=== PATIENT | female | born 1950 | race Caucasian/White ===

== ENCOUNTER 2016-11-13 12:15 | Emergency (ER) | payer BC ==
[~2016-11-13] VITALS: Ht 160 cm; Wt 78.3 kg
[~2016-11-13 12:15] MED LIST: ALBUAER19 INH; ATR25 PO; IBUP-103 PO; SALI1SPR3 NAE; ZLF50 PO
[2016-11-13 12:25] VITALS: Ht 160 cm; Wt 78.3 kg
[2016-11-13] MEDS ORDERED: ZLF/50 PO (13:23)
[2016-11-13] MEDS ORDERED: ASPIRIN 81 MG CHEW PO STA (13:27)
[2016-11-13] MEDS ORDERED: PANTOprazole INJ 40 MG in SYRINGE 0 ML IV ONE (13:30)
--- NOTE | 2016-11-13 13:46 | EMERGENCY ROOM VISIT NOTE ---
History Report prepared by Tracey: Ashlyn Deleon Under the Supervision of: Dr. Satish Bell D.O. First contact with patient: 13:09 Chief Complaint: CARDIAC ASSESSMENT Stated Complaint: LEFT ARM PAIN, INDIGESTION History of Present Illness The patient is a 66 year old female who presents to the Emergency Room with complaints of persistent left arm pain that began prior to arrival. She currently rates her discomfort as a 6/10 in severity, describing her pain as an ache. The patient states that her pain has persisted throughout the day and has noticed the pain radiate from her left arm to her left shoulder, back and ribs. She states that for the past two weeks she has been experiencing heart burn that has been worsened with eating. The patient denies any tobacco or alcohol use. She denies any active medical problems. The patient notes a history of a previous hysterectomy after a benign tumor was found. She denies any history of blood clots. The patient states that she got of flu shot and pneumonia shot this year. She states that she has had a previous stress test. The patient denies any shortness of breath or cough today. Source of History: patient Onset: prior to arrival Position: arm (left) Symptom Intensity: 6/10 Quality: ache Timing: other (persistent) Associated Symptoms: No SOB, No cough Review of Systems See HPI for pertinent positives & negatives. A total of 10 systems reviewed and were otherwise negative. 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 (3) Rhabdomyolysis Surgical Problems: (1) S/P ELIAS-BSO Family History Diabetes mellitus FHx: gallbladder disease Hypertension Social History Smoking Status: Never Smoker Alcohol Use: none Marital Status: single Housing Status: lives alone Occupation Status: retired Current/Historical Medications Scheduled Sertraline HCl (Sertraline HCl), 25 MG PO PM Scheduled PRN Albuterol Inhaler (Ventolin Inhaler), 2 PUFFS INH QID PRN for ASTHMA Ibuprofen Tab (Advil), 200-600 MG PO Q4H PRN for BODY ACHE Miscellaneous Medications Saline (Saline Nasal Crum) Allergies Coded Allergies: Codeine (Unverified Allergy, Mild, 11/13/16) Penicillins (Unverified Allergy, Mild, 11/13/16) Physical Exam Vital Signs Date Time Temp Pulse Resp B/P Pulse Ox O2 Delivery O2 Flow Rate FiO2 2/14/17 16:37 37.2 94 19 145/92 95 11/13/16 16:00 94 19 95 11/13/16 15:58 145/92 11/13/16 15:51 170/92 11/13/16 15:49 103 20 157/110 96 Room Air 11/13/16 15:48 157/110 11/13/16 15:39 172/96 11/13/16 15:30 100 18 11/13/16 15:29 172/96 11/13/16 15:00 99 23 11/13/16 13:30 110 11/13/16 12:25 37.2 130 20 166/103 97 Room Air Physical Exam GENERAL: Patient is awake, alert, and in no acute distress. Patient is resting comfortably and showing no signs of anxiety EYES: The conjunctivae are clear. The pupils are round and reactive. EARS, NOSE, MOUTH AND THROAT: The nose is without any evidence of any deformity. Mucous membranes are moist tongue is midline NECK: The neck is nontender and supple. RESPIRATORY: Normal respiratory effort is noted there is no evidence of wheezing rhonchi or rales CARDIOVASCULAR: Regular rate and rhythm noted there no murmurs rubs or gallops normal S1 normal S2 GASTROINTESTINAL: The abdomen is soft. Bowel sounds are present in all quadrants. Abdomen is nontender MUSCULOSKELETAL/EXTREMITIES: There is no evidence of gross deformity full range of motion is noted in the hips and shoulders SKIN: There is no obvious evidence of any rash. There are no petechiae, pallor or cyanosis noted. NEUROLOGIC: Patient is awake alert and oriented x3. Medical Decision & Procedures ER Provider Diagnostic Interpretation: X-ray results as stated below per interpretation by me and the radiologist. KUB CLINICAL HISTORY: ABDOMINAL PAIN/GI COMPARISON STUDY: No previous studies for comparison. FINDINGS: The soft tissues, psoas shadows, renal outlines and intestinal gas pattern appear normal. There is no evidence for bowel obstruction. No abnormal abdominal calcifications are seen. IMPRESSION: Normal study. Electronically signed by: Carmelo Rodriguez M.D. 11/13/2016 2:30 PM Dictated Date/Time: 11/13/2016 2:29 PM SINGLE VIEW CHEST CLINICAL HISTORY: Generalized abdominal pain. FINDINGS: An AP, portable, upright chest radiograph is compared to chest x-ray and chest CT dated 02/04/2014. The cardiomediastinal silhouette is unremarkable. A calcified granuloma is again noted the right apex. The lungs and pleural spaces are otherwise clear. No pneumothorax is seen. The skeletal structures are osteopenic. The bony thorax is grossly intact. IMPRESSION: No active disease in the chest. Electronically signed by: Jayden Kennedy M.D. 11/13/2016 2:31 PM Dictated Date/Time: 11/13/2016 2:30 PM Laboratory Results 11/13/16 14:01 Red Blood Count 5.16, Mean Corpuscular Volume 85.7, Mean Corpuscular Hemoglobin 29.8, Mean Corpuscular Hemoglobin Concent 34.8, Mean Platelet Volume 8.7, Neutrophils (%) (Auto) 71.2, Lymphocytes (%) (Auto) 19.9, Monocytes (%) (Auto) 7.7, Eosinophils (%) (Auto) 0.7, Basophils (%) (Auto) 0.4, Neutrophils # (Auto) 5.91, Lymphocytes # (Auto) 1.65, Monocytes # (Auto) 0.64, Eosinophils # (Auto) 0.06, Basophils # (Auto) 0.03 11/13/16 14:01 Test 11/13/16 14:01 11/13/16 14:14 White Blood Count 8.30 K/uL (4.8-10.8) Red Blood Count 5.16 M/uL (4.2-5.4) Hemoglobin 15.4 g/dL (12.0-16.0) Hematocrit 44.2 % (37-47) Mean Corpuscular Volume 85.7 fL (80-100) Mean Corpuscular Hemoglobin 29.8 pg (25-34) Mean Corpuscular Hemoglobin Concent 34.8 g/dl (32-36) Platelet Count 260 K/uL (130-400) Mean Platelet Volume 8.7 fL (7.4-10.4) Neutrophils (%) (Auto) 71.2 % Lymphocytes (%) (Auto) 19.9 % Monocytes (%) (Auto) 7.7 % Eosinophils (%) (Auto) 0.7 % Basophils (%) (Auto) 0.4 % Neutrophils # (Auto) 5.91 K/uL (1.4-6.5) Lymphocytes # (Auto) 1.65 K/uL (1.2-3.4) Monocytes # (Auto) 0.64 K/uL (0.11-0.59) Eosinophils # (Auto) 0.06 K/uL (0-0.5) Basophils # (Auto) 0.03 K/uL (0-0.2) RDW Standard Deviation 41.8 fL (36.4-46.3) RDW Coefficient of Variation 13.4 % (11.5-14.5) Immature Granulocyte % (Auto) 0.1 % Immature Granulocyte # (Auto) 0.01 K/uL (0.00-0.02) Prothrombin Time 10.6 SECONDS (9.0-12.0) Prothromb Time International Ratio 1.0 (0.9-1.1) Activated Partial Thromboplast Time 27.2 SECONDS (21.0-31.0) Partial Thromboplastin Ratio 1.0 Anion Gap 11.0 mmol/L (3-11) Est Creatinine Clear Calc Drug Dose 57.3 ml/min Estimated GFR () 71.0 Estimated GFR (Non- 61.3 BUN/Creatinine Ratio 14.3 (10-20) Calcium Level 9.1 mg/dl (8.5-10.1) Total Bilirubin 0.6 mg/dl (0.2-1) Direct Bilirubin 0.2 mg/dl (0-0.2) Aspartate Amino Transf (AST/SGOT) 33 U/L (15-37) Alanine Aminotransferase (ALT/SGPT) 58 U/L (12-78) Alkaline Phosphatase 145 U/L (45-117) Total Creatine Kinase 513 U/L (26-192) Creatine Kinase MB 7.8 ng/ml (0.5-3.6) Creatine Kinase MB Ratio 1.5 (0-3.0) Troponin I < 0.015 ng/ml (0-0.045) Total Protein 7.7 gm/dl (6.4-8.2) Albumin 4.0 gm/dl (3.4-5.0) Lipase 248 U/L (73-393) Urine Color YELLOW Urine Appearance CLEAR (CLEAR) Urine pH 6.0 (4.5-7.5) Urine Specific [place] 1.013 (1.000-1.030) Urine Protein NEG (NEG) Urine Glucose (UA) NEG (NEG) Urine Ketones NEG (NEG) Urine Occult Blood NEG (NEG) Urine Nitrite NEG (NEG) Urine Bilirubin NEG (NEG) Urine Urobilinogen NEG (NEG) Urine Leukocyte Esterase NEG (NEG) Laboratory results per my review. Medications Administered Medications (Trade) Dose Ordered Sig/Julián Route Start Time Stop Time Status Last Admin Dose Admin Pantoprazole Sodium/Syringe (Protonix Inj/ Syringe) 10 ml @ 5 mls/min NOW ONCE IV 11/13/16 13:30 11/13/16 13:31 DC 11/13/16 14:06 5 MLS/MIN Aspirin (Aspirin Chew) 324 mg NOW STAT PO 11/13/16 13:27 11/13/16 13:28 DC 11/13/16 14:06 324 MG ECG Indication: chest pain Rate (beats per minute): 126 Rhythm: sinus tachycardia Findings: ST depression (Lateral), no ectopy Comparison ECG Date: 02/04/14 Change: no significant change ED Course 1323: The patient was evaluated in room B10. A complete history and physical examination were performed. 1327: Ordered Aspirin 324 mg PO. 1330: Ordered Pantoprazole Sodium 40 mg/Syringe 10 ml @ 5 mls/min IV. 1519: I reevaluated the patient and she is resting comfortably. I discussed the exam findings and I discussed the treatment plan. She verbalized complete understanding and agreement. She is ready to go home Medical Decision Differential diagnosis: Etiologies such as cardiac ischemia, aortic dissection, pulmonary embolism, pneumonia, pneumothorax, musculoskeletal, infections, pericarditis, myocarditis , esophageal rupture, gastrointestinal, as well as others were entertained. Nursing notes reviewed. The patient is a 66-year-old female who presented to emergency department for an evaluation of chest pain. The patient called her primary care physician to try to get an appointment but was unable to get an appointment at this time. The patient did not have any acute ST segment abnormalities. Her EKG appeared similar to previous. The patient was treated with aspirin and Protonix in the emergency department. She was reevaluated multiple times. I discussed the patient's laboratory and radiographic studies with her. I also discussed the limitations of the emergency department workup for chest pain with her. She was encouraged to rest and avoid any strenuous activity. She was also encouraged to call her family doctor to schedule follow-up appointment. Otherwise she was encouraged to return to the emergency apartment immediately if symptoms change worsen or the need arises. Impression Primary Impression: Left sided chest pain Scribe Attestation The scribe's documentation has been prepared under my direction and personally reviewed by me in its entirety. I confirm that the note above accurately reflects all work, treatment, procedures, and medical decision making performed by me. Departure Information Dispostion Home / Self-Care Referrals Carlos Siddiqi M.D. (PCP) Forms IMPORTANT VISIT INFORMATION, Work Instructions Patient Instructions ED Chest Pain Atypical Unkn Cause, My [facility] Additional Instructions Call your family to schedule a follow-up appointment for this week. Rest and avoid any strenuous activity. Return to the emergency department immediately if symptoms change worsen or if the need arises.
[2016-11-13 14:12] LABS: BASO % 0.4 %; BASO ABS # 0.03 K/uL (0-0.2); COMPLETE YES; EOS % 0.7 %; HEMATOCRIT 44.2 % (37-47); IG% 0.1 %; LYMPH % 19.9 %; LYMPH ABS # 1.65 K/uL (1.2-3.4); MEAN CELL VOLUME 85.7 fL (80-100); MEAN CORPUSCULAR HEMOGLOBIN 29.8 pg (25-34); MEAN CORPUSCULAR HGB CONC 34.8 g/dl (32-36); MEAN PLATELET VOLUME 8.7 fL (7.4-10.4); MONO % 7.7 %; NEUT % 71.2 %; PLATELET COUNT 260 K/uL (130-400); RED BLOOD COUNT 5.16 M/uL (4.2-5.4)
[2016-11-13 14:23] LABS: PROTHROMBIN TIME (PATIENT) 10.6 SECONDS (9.0-12.0)
--- NOTE | 2016-11-13 14:31 | DIAGNOSTIC IMAGING REPORT ---
KUB CLINICAL HISTORY: ABDOMINAL PAIN/GI COMPARISON STUDY: No previous studies for comparison. FINDINGS: The soft tissues, psoas shadows, renal outlines and intestinal gas pattern appear normal. There is no evidence for bowel obstruction. No abnormal abdominal calcifications are seen. IMPRESSION: Normal study. Electronically signed by: Carmelo Rodriguez M.D. 11/13/2016 2:30 PM Dictated Date/Time: 11/13/2016 2:29 PM
[2016-11-13 14:32] LABS: ALT/SGPT 58 U/L (12-78); AST/SGOT 33 U/L (15-37); BLOOD UREA NITROGEN 14 mg/dl (7-18); BUN/CREATININE RATIO 14.3 (10-20); CALCIUM 9.1 mg/dl (8.5-10.1); CARBON DIOXIDE 26 mmol/L (21-32); CHLORIDE 105 mmol/L (98-107); CREATININE 0.97 mg/dl (0.60-1.20); GLUCOSE 102 mg/dl (70-99); POTASSIUM 3.8 mmol/L (3.5-5.1); SODIUM 142 mmol/L (136-145)
--- NOTE | 2016-11-13 14:33 | DIAGNOSTIC IMAGING REPORT ---
SINGLE VIEW CHEST CLINICAL HISTORY: Generalized abdominal pain. FINDINGS: An AP, portable, upright chest radiograph is compared to chest x-ray and chest CT dated 02/04/2014. The cardiomediastinal silhouette is unremarkable. A calcified granuloma is again noted the right apex. The lungs and pleural spaces are otherwise clear. No pneumothorax is seen. The skeletal structures are osteopenic. The bony thorax is grossly intact. IMPRESSION: No active disease in the chest. Electronically signed by: Jayden Kennedy M.D. 11/13/2016 2:31 PM Dictated Date/Time: 11/13/2016 2:30 PM
[2016-11-13 14:34] LABS: URINE APPEARANCE CLEAR (CLEAR); URINE BILIRUBIN NEG (NEG); URINE COLOR YELLOW; URINE NITRITE NEG (NEG); URINE SPECIFIC GRAVITY 1.013 (1.000-1.030); UROBILINOGEN NEG (NEG)
[2016-11-13 14:37] LABS: MANUAL MICROSCOPIC REQUIRED? NO; REVIEW REQ? NO
[2016-11-13 14:38] LABS: ALKALINE PHOSPHATASE 145 U/L (45-117); CKMB/CK RATIO 1.5 (0-3.0)
[2016-11-13 16:37] VITALS: BP 145/92; PULSE 94; TEMP 37.2; O2SAT 95
== END 2016-11-13 16:38 | disposition home or self-care (01) ==
LOC: C.EDB 12:17
DX: R07.89 Other chest pain (principal); J45.909 Unspecified asthma, uncomplicated; Z90.710 Acquired absence of both cervix and uterus; Z90.722 Acquired absence of ovaries, bilateral; Z90.79 Acquired absence of other genital organ(s); Z83.3 Family history of diabetes mellitus; Z82.49 Family history of ischemic heart disease and other diseases of the circulatory system

== ENCOUNTER → 2016-11-14 | Outpatient (CLI) | payer BC ==
[~2016-11-14] MED LIST changes: +ACET-1256 PO; +OMEP20CA9 PO; +PTDOPS OPB; +VNTHFA/IN INH; +ZLF/50 PO
--- NOTE | 2016-11-14 16:53 | MAMMOGRAPHY REPORT ---
BILATERAL DIGITAL SCREENING MAMMOGRAM WITH CAD: 11/14/2016 TECHNIQUE: Current study was also evaluated with a Computer Aided Detection (CAD) system. Bilatera l CC and MLO views were obtained. COMPARISON: Comparison is made to exams dated: 06/15/2015 mammogram - [facility], 04/29/2014 mammogram, 04/16/2013 mammogram - [facility], 07/18/2012 mammogram - [facility], 01/10/2012 mammogram, and 10/30/2010 mammogram. BREAST COMPOSITION: There are scattered areas of fibroglandular density in both breasts. FINDINGS: No suspicious masses, calcifications, or areas of architectural distortion are noted in e ither breast. There has been no significant interval change compared to prior exams. Scattered bila teral benign-appearing calcifications are not significantly changed. A biopsy marker clip is again noted in the left medial breast. Oval benign-appearing mass in the left upper outer quadrant is sta ble dating back to at least the 2011 exam. IMPRESSION: ACR BI-RADS CATEGORY 2: BENIGN There is no mammographic evidence of malignancy. A 1 year screening mammogram is recommended. The p atient will receive written notification of the results. Approximately 10% of breast cancers are not detected with mammography. A negative mammographic repor t should not delay biopsy if a clinically suggestive mass is present. Kelsey Ruelas M.D. ah/:11/14/2016 15:28:08 Knockdown Worker: Solange GARCES)(Frank), [facility] letter sent: Normal 1/2 BI-RADS Code: ACR BI-RADS Category 2: Benign
== END | disposition home or self-care (01) ==
LOC: C.MAMM 14:03
PROVIDERS: ATTEND Internal Medicine Pulmonary Disease
DX: Z12.31 Encounter for screening mammogram for malignant neoplasm of breast (principal)

== ENCOUNTER → 2016-11-22 | Outpatient (CLI) | payer BC ==
[~2016-11-22] MED LIST changes: -ATR25 PO; -ZLF50 PO
--- NOTE | 2016-11-22 11:11 | DIAGNOSTIC IMAGING REPORT ---
LEFT SHOULDER MIN 2 VIEWS CLINICAL HISTORY: LEFT SHOULDER NECK PAIN COMPARISON: None. DISCUSSION: The bones and joint spaces appear intact. There is no evidence of fracture, dislocation or bony disease. There is no evidence for soft tissue swelling. IMPRESSION: Negative study. Electronically signed by: Carmelo Rodriguez M.D. 11/22/2016 11:10 AM Dictated Date/Time: 11/22/2016 11:09 AM
--- NOTE | 2016-11-22 12:45 | DIAGNOSTIC IMAGING REPORT ---
CERVICAL SPINE 5 VIEWS HISTORY: LEFT SHOULDER NECK PAIN COMPARISON: None. FINDINGS: The cervical spine is visualized from C1 through the superior endplate of C7. There is no fracture. No subluxation. Mild disc space narrowing at C5-C6. Mild bilateral neural foraminal narrowing at C5-C6. The odontoid is partially obscured by the patient's skull base. Prevertebral soft tissues and the atlantodens interval are intact. IMPRESSION: 1. No fracture or subluxation within the cervical spinal. 2. Mild degenerative disc disease and mild bilateral neural foraminal narrowing at C5-C6. Electronically signed by: Dain Vivas M.D. 11/22/2016 12:43 PM Dictated Date/Time: 11/22/2016 12:40 PM
== END | disposition home or self-care (01) ==
LOC: C.RDSM 09:50
PROVIDERS: ATTEND Family Medicine
DX: M25.512 Pain in left shoulder (principal)

== ENCOUNTER → 2016-11-29 | Outpatient (CLI) | payer BC ==
--- NOTE | 2016-11-29 13:09 | DIAGNOSTIC IMAGING REPORT ---
LEFT KNEE 4 OR MORE CLINICAL HISTORY: LEFT KNEE PAIN pain COMPARISON: None. DISCUSSION: Mild degenerative change medial joint compartment as well as patellofemoral joint compartment. Lateral projection suggests a potential osteochondral defect overlying the femoral condyle but this is not well seen in AP projection. There is no significant joint effusion. There is no evidence for soft tissue swelling. IMPRESSION: 1. Potential osteochondral defect seen only on the lateral projection but presumably involving the region of the femoral condyles. 2. Mild degenerative change medial joint compartment and patellofemoral joint. 3. MRI of the left knee is suggested Electronically signed by: Carmelo Rodriguez M.D. 11/29/2016 1:07 PM Dictated Date/Time: 11/29/2016 1:06 PM
== END | disposition home or self-care (01) ==
LOC: C.RDSM 12:55
PROVIDERS: ATTEND Physical Medicine & Rehabilitation Sports Medicine
DX: M25.562 Pain in left knee (principal); R93.7 Abnormal findings on diagnostic imaging of other parts of musculoskeletal system

== ENCOUNTER 2017-01-28 17:38 | Emergency (ER) | payer BC ==
[~2017-01-28] VITALS: Ht 160 cm; Wt 80.0 kg
[~2017-01-28 17:38] MED LIST changes: -ACET-1256 PO; -OMEP20CA9 PO; -PTDOPS OPB; -VNTHFA/IN INH
[2017-01-28 17:44] VITALS: TEMP 36.8; Ht 160 cm; Wt 80.0 kg
--- NOTE | 2017-01-28 18:19 | EMERGENCY ROOM VISIT NOTE ---
History Report prepared by Tracey: Darron Olivera Under the Supervision of: Dr. Jayden Uriostegui M.D. First contact with patient: 18:02 Chief Complaint: SWELLING TO EXTREMITY Stated Complaint: RIGHT FOOT SWOLLEN LOOKS LIKE BITE History of Present Illness The patient is a 66 year old female who presents to the Emergency Room with complaints of constant right foot swelling beginning two days prior to arrival. She currently rates her discomfort as a 6/10 in severity. The patient associates right foot pain and right foot itchiness with today's symptoms. She notes her pain worsens with walking. The patient states she was doing work outside, but she does not remember getting a bite from an insect. She denies recent trauma, falls, recent long travel, and recent long periods of immobility. The patient denies a history of blood clots in her legs or lungs. She notes she came to the ED, because she could not get an appointment with her regular doctor. 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 A total of 6 systems reviewed and were otherwise negative. 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 (3) Rhabdomyolysis Surgical Problems: (1) S/P ELIAS-BSO Family History Diabetes mellitus FHx: gallbladder disease Hypertension Social History Smoking Status: Never Smoker Alcohol Use: none Marital Status: single Housing Status: lives alone Occupation Status: retired Current/Historical Medications Scheduled Omeprazole (Prilosec), 20 MG PO DAILY Sertraline HCl (Sertraline HCl), 25 MG PO PM Scheduled PRN Acetaminophen (Tylenol), 1,000 MG PO DAILY PRN for Pain Albuterol Hfa (Ventolin Hfa), 2 PUFFS INH Q6H PRN for SOB/Wheezing Olopatadine Hydrochloride (Pataday), 1 DROP OPB DAILY PRN for ITCHY EYES Saline (Saline Nasal [place]), 2 SPRY DENISE DAILY PRN for TO CLEAR NOSE Allergies Coded Allergies: Codeine (Unverified Allergy, Mild, 11/13/16) Penicillins (Unverified Allergy, Mild, 11/13/16) Physical Exam Vital Signs Date Time Temp Pulse Resp B/P Pulse Ox O2 Delivery O2 Flow Rate FiO2 01/28/17 19:44 92 18 145/89 93 01/28/17 17:44 36.8 120 18 174/97 95 Room Air Physical Exam GENERAL: Patient is sitting on stretcher. No distress. NEURO: Moving all extremities. Awake and alert. Oriented X 3. EXTREMITIES: Swelling to the dorsum of the right foot. No evidence for cellulitis. No swelling to the leg itself. Good blood flow in the distal toes. Small 2 mm raised, reddened lesion consistent with a possible sting or bite to the dorsal distal lateral foot near the fourth metatarsal. Medical Decision & Procedures ER Provider Diagnostic Interpretation: X-ray results as stated below per interpretation by me and the radiologist: RIGHT FOOT 3 VIEWS CLINICAL HISTORY: Right foot pain. FINDINGS: 3 views of the right foot are obtained. No prior studies are available for comparison at the time of dictation. The skeletal structures are osteopenic. There is no radiographic evidence of fracture. Mild arthritic change is noted at the first metatarsophalangeal joint. There is a large plantar calcaneal enthesophyte. A high arch is incidentally noted. The overlying soft tissues are within normal limits. IMPRESSION: Osteopenia and mild degenerative change as above. No acute bony abnormality is identified. Electronically signed by: Jayden Kennedy M.D. 01/28/2017 7:13 PM ED Course 1803: The patient was evaluated in room C6. A complete history and physical exam was performed. 1927: Reevaluated the patient. Discussed results and discharge instructions: She verbalized understanding and agreement. The patient is ready for discharge. Medical Decision The differential diagnoses include but are not limited to: cellulitis, DVT, fracture, bite or sting, arthritis. The patient presents with some itching and swelling of her right foot. She had been outside doing yardwork. On exam, there appeared to be a small area to the dorsum of the foot consistent with an insect bite or sting. Clinically, there was no evidence for cellulitis. Films of the right foot were done, no stress fracture, no fracture or bony dislocation noted. The patient was reassured. She can use Benadryl or Claritin for itching, ice and elevation were suggested. She will watch closely for worsening symptoms or worsening swelling. I did talk about the possibility of DVT with her. I think the risk for clot is low, if things are worsening, an ultrasound may be needed. Impression Primary Impression: Foot swelling Scribe Attestation The scribe's documentation has been prepared under my direction and personally reviewed by me in its entirety. I confirm that the note above accurately reflects all work, treatment, procedures, and medical decision making performed by me. Departure Information Dispostion Home / Self-Care Referrals Carlos Siddiqi M.D. (PCP) Forms HOME CARE DOCUMENTATION FORM, IMPORTANT VISIT INFORMATION Patient Instructions My [facility] Additional Instructions ice and elevation use Claritin for itching--use as directed see nearest ER for redness, fever or worsening swelling try to stay off of the foot if you can
--- NOTE | 2017-01-28 19:15 | DIAGNOSTIC IMAGING REPORT ---
RIGHT FOOT 3 VIEWS CLINICAL HISTORY: Right foot pain. FINDINGS: 3 views of the right foot are obtained. No prior studies are available for comparison at the time of dictation. The skeletal structures are osteopenic. There is no radiographic evidence of fracture. Mild arthritic change is noted at the first metatarsophalangeal joint. There is a large plantar calcaneal enthesophyte. A high arch is incidentally noted. The overlying soft tissues are within normal limits. IMPRESSION: Osteopenia and mild degenerative change as above. No acute bony abnormality is identified. Electronically signed by: Jayden Kennedy M.D. 01/28/2017 7:13 PM Dictated Date/Time: 01/28/2017 7:12 PM
[2017-01-28] MEDS ORDERED: PTDOPS OPB (19:16)
[2017-01-28] MEDS ORDERED: VNTHFA/IN INH (19:16)
[2017-01-28] MEDS ORDERED: OMEP20CA9 PO (19:21)
[2017-01-28] MEDS ORDERED: ACET-1256 PO (19:21)
[2017-01-28 19:44] VITALS: BP 145/89; PULSE 92; O2SAT 93
== END 2017-01-28 19:44 | disposition home or self-care (01) ==
LOC: C.EDB 17:40 → C.EDC 19:44
DX: M79.89 Other specified soft tissue disorders (principal); J45.909 Unspecified asthma, uncomplicated; M62.82 Rhabdomyolysis; Z83.3 Family history of diabetes mellitus; Z83.79 Family history of other diseases of the digestive system; Z82.49 Family history of ischemic heart disease and other diseases of the circulatory system; Z79.899 Other long term (current) drug therapy

== ENCOUNTER → 2017-07-29 | Outpatient (CLI) | payer BC ==
[~2017-07-29] MED LIST changes: +ACET-1256 PO; -ALBUAER19 INH; -IBUP-103 PO; +OMEP20CA9 PO; +PTDOPS OPB; +VNTHFA/IN INH
--- NOTE | 2017-07-29 10:32 | DIAGNOSTIC IMAGING REPORT ---
AP PELVIS AND RIGHT HIP 2 VIEWS CLINICAL HISTORY: RIGHT HIP PAIN COMPARISON: None. DISCUSSION: No acute fractures are visualized. The joint space appears relatively well preserved for age. Degenerative type changes are present within the symphysis pubis with right-sided subcortical cystic change IMPRESSION: 1. No acute fractures 2. Mild degenerative changes. Electronically signed by: Mahamed Reeder M.D. 07/29/2017 10:30 AM Dictated Date/Time: 07/29/2017 10:29 AM
== END | disposition home or self-care (01) ==
LOC: C.RDSM 12:03
PROVIDERS: ATTEND Physician Assistant
DX: M25.551 Pain in right hip (principal)

== ENCOUNTER → 2017-11-19 | Outpatient (CLI) | payer BC ==
--- NOTE | 2017-11-20 08:03 | MAMMOGRAPHY REPORT ---
BILATERAL DIGITAL SCREENING MAMMOGRAM TOMOSYNTHESIS WITH CAD: 11/19/2017 CLINICAL HISTORY: Routine screening. Patient has no complaints. TECHNIQUE: Breast tomosynthesis in addition to standard 2D mammography was performed. Current study was also evaluated with a Computer Aided Detection (CAD) system. COMPARISON: Comparison is made to exams dated: 11/14/2016 mammogram, 06/15/2015 mammogram - [facility], 04/29/2014 mammogram, 04/16/2013 mammogram - [facility], 07/18/2012 u ltrasound, and 07/18/2012 mammogram - [facility]. BREAST COMPOSITION: There are scattered areas of fibroglandular density in both breasts. FINDINGS: There are scattered benign rim and coarse calcifications. A stable biopsy marker clip in t he medial left breast. A stable tiny 1.5 mm grouping of punctate microcalcifications in the superior right breast appears similar dating back to at least 2011, therefore likely benign given greater marcelo n 5 years of stability. No new suspicious mass, architectural distortion or cluster of microcalcific ations is seen. IMPRESSION: ACR BI-RADS CATEGORY 1: NEGATIVE There is no mammographic evidence of malignancy. A 1 year screening mammogram is recommended. The pa tient will receive written notification of the results. Approximately 10% of breast cancers are not detected with mammography. A negative mammographic report should not delay biopsy if a clinically suggestive mass is present. Sasha Mason M.D. ay/:11/19/2017 15:20:41 Classification And Treatment Director: Solange OSULLIVAN(Darwin)(Frank), [facility] letter sent: Normal 1/2 BI-RADS Code: ACR BI-RADS Category 1: Negative
== END | disposition home or self-care (01) ==
LOC: C.MAMM 10:28
PROVIDERS: ATTEND Internal Medicine Pulmonary Disease
DX: Z12.31 Encounter for screening mammogram for malignant neoplasm of breast (principal)

== ENCOUNTER → 2018-01-08 | Outpatient (CLI) | payer BC ==
[~2018-01-08] MED LIST changes: +SALI-3 NAE; -SALI1SPR3 NAE
[2018-01-08 09:34] LABS: BASO % 0.3 %; BASO ABS # 0.02 K/uL (0-0.2); EOS % 0.9 %; EOS ABS # 0.05 K/uL (0-0.5); HEMATOCRIT 45.6 % (37-47); HEMOGLOBIN 15.8 g/dL (12.0-16.0); IG# 0.02 K/uL (0.00-0.02); LYMPH % 43.8 %; LYMPH ABS # 2.56 K/uL (1.2-3.4); MEAN CELL VOLUME 88.5 fL (80-100); MEAN CORPUSCULAR HEMOGLOBIN 30.7 pg (25-34); MEAN CORPUSCULAR HGB CONC 34.6 g/dl (32-36); MEAN PLATELET VOLUME 9.4 fL (7.4-10.4); MONO % 7.2 %; MONO ABS # 0.42 K/uL (0.11-0.59); NEUT % 47.5 %; NEUT ABS # 2.77 K/uL (1.4-6.5); PLATELET COUNT 250 K/uL (130-400); RED CELL DISTRIBUTION WIDTH CV 13.3 % (11.5-14.5); WHITE BLOOD COUNT 5.84 K/uL (4.8-10.8)
[2018-01-08 09:47] LABS: ALBUMIN 3.8 gm/dl (3.4-5.0); ALT/SGPT 35 U/L (12-78); AST/SGOT 18 U/L (15-37); BLOOD UREA NITROGEN 19 mg/dl (7-18); CARBON DIOXIDE 25 mmol/L (21-32); CHOLESTEROL 235 mg/dl (0-200); CREATININE 0.89 mg/dl (0.60-1.20); GLUCOSE 102 mg/dl (70-99); POTASSIUM 3.8 mmol/L (3.5-5.1); SODIUM 140 mmol/L (136-145)
[2018-01-08 09:57] LABS: ALKALINE PHOSPHATASE 116 U/L (45-117); LDL CHOLESTEROL CALCULATED 154 mg/dl; TOTAL PROTEIN 7.3 gm/dl (6.4-8.2)
== END | disposition home or self-care (01) ==
LOC: C.LAB1850 07:57
PROVIDERS: ATTEND Internal Medicine Pulmonary Disease
DX: J45.909 Unspecified asthma, uncomplicated (principal); M79.1 Myalgia; M60.9 Myositis, unspecified

== ENCOUNTER 2023-07-10 07:01 | Inpatient (IN) ==
--- NOTE | 2023-06-17 15:23 | PAT Medication Instructions ---
Medication Instructions Date of Service June 17, 2023 Home Medications Medication Instructions Recorded pantoprazole 40 mg tablet,delayed 40 mg PO BID #180 tabs 10/31/22 release albuterol sulfate 90 mcg/actuation 2 inh inhalation QID PRN Wheezing 03/06/23 aerosol inhaler (Ventolin HFA) #8.5 grams Medication List: calcium carbonate 600 mg calcium (1,500 mg) tablet (Calcium) 600 mg PO BID sertraline 50 mg tablet 50 mg PO HS pantoprazole 40 mg tablet,delayed release 40 mg PO BID albuterol sulfate 90 mcg/actuation aerosol inhaler (Ventolin HFA) 2 inh inhalation QID PRN Wheezing #8.5 grams losartan 100 mg tablet 100 mg PO QAM atenolol 50 mg tablet 50 mg PO QAM Medication Instructions: Continue as directed albuterol sulfate 90 mcg/actuation aerosol inhaler (Ventolin HFA) 2 inh inhalation QID PRN Wheezing #8.5 grams (bring to hospital day of surgery) DO NOT take the morning of surgery calcium carbonate 600 mg calcium (1,500 mg) tablet (Calcium) 600 mg PO BID losartan 100 mg tablet 100 mg PO QAM Take morning of surgery With a small sip of water, OTHERWISE NOTHING TO EAT OR DRINK AFTER MIDNIGHT: atenolol 50 mg tablet 50 mg PO QAM pantoprazole 40 mg tablet,delayed release 40 mg PO BID Take evening before surgery calcium carbonate 600 mg calcium (1,500 mg) tablet (Calcium) 600 mg PO BID sertraline 50 mg tablet 50 mg PO HS pantoprazole 40 mg tablet,delayed release 40 mg PO BID Other Notes If you have any questions please call us at [phone] or [phone] or [phone] or [phone]
--- NOTE | 2023-06-24 11:28 | Anesthesiology Consultation ---
Date of Service June 24, 2023 Assessment & Plan (1) Encounter for pre-operative examination: Chart Review Chart Review: Acceptable Risk for Surgery (pending 06/28/23 PCP clearance ) and Patient seen in Pre Admission Testing - Awaiting PCP clearance 06/28/23 ([place]) Pt currently scheduled as 23 hours observation. If surgeon decides to change patient to Same Day Joint, patient would be acceptable risk for TKA, pending patient is motivated, has good support and surgeon's office completes [facility] Day Joint Program preop requirements. Per PAT appt on 06/24/23, no recent illness/disease exposures, illness related symptoms, or recent illness/disease positive tests. Will leave to surgeon's discretion if preop Covid testing needed Teaching & Discussion Pre-Anesthesia Teaching/Discussion Notes: Instructed NPO after midnight before surgery,except medications with 15 cc of water. Medication instructions provided according to the PAT guidelines. History Surgery Operation Date: 07/10/23 07:00 Proposed Procedures p Left Total Knee Arthroplasty - Mychal Scherer MD Height/Weight Height: 5 ft 2.5 in Weight: 84.5 kg Allergies Allergy/AdvReac Type Severity Reaction Status Date / Time codeine AdvReac Intermediate Vomiting Verified 06/14/23 11:23 Penicillins AdvReac Intermediate Vomiting Verified 06/14/23 11:23 Elbwafe-QWB-ExN Reductase AdvReac Intermediate CARRIER OF Verified 06/14/23 11:23 Inhibitor MD--INCREASED [Ycvfsmh-Toh-Ykj Reductase MUSCLE Inhibitor] ACHES Medications Home Medications Medication Instructions Recorded Confirmed Last Taken calcium carbonate 600 mg calcium 600 mg PO BID 08/20/19 06/14/23 02/09/23 (1,500 mg) tablet (Calcium) sertraline 50 mg tablet 50 mg PO HS 04/04/22 06/14/23 02/08/23 pantoprazole 40 mg tablet,delayed 40 mg PO BID #180 tabs 10/31/22 06/14/23 02/09/23 08:00 release albuterol sulfate 90 mcg/actuation 2 inh inhalation QID PRN Wheezing 03/06/23 06/14/23 Unknown aerosol inhaler (Ventolin HFA) #8.5 grams losartan 100 mg tablet 100 mg PO QAM 03/06/23 06/14/23 Unknown atenolol 50 mg tablet 50 mg PO QAM 06/14/23 06/14/23 Unknown Past Medical History Medical History Anxiety and depression currently under control Asthma inh prn- rare albuterol use breathing controlled 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 Chronic rhinitis Due to allergies- stable GERD (gastroesophageal reflux disease) Well controlled and stable History of Helicobacter pylori infection 10/2022, tx w/2 abx and pepto bismol>no current issues Hypertension Nausea and vomiting after administration of anesthetic agent Tachycardia hx-"due to anxiety she thinks" stable currently- no recent issues Exercise / Class Metabolic Activity II 4-5 Yardwork/Stairs/Walk up hill (one flight of stairs- no chest pain or SOB ) Past Family History Family History Family/Other Coronary heart disease Father Family history of diabetes mellitus Mother Hypertension Daughter Family history of reaction to anesthesia difficulty waking Other No pertinent family history Past Surgical History Surgical History History of bilateral tubal ligation History of cardiac cath 2003 @ [facility]--no stents History of colonoscopy History of dilatation and curettage History of left breast biopsy benign History of tooth extraction History of total hysterectomy with bilateral salpingo-oophorectomy (BSO) Status post correction of deviated nasal septum Past Anesthesia History No Hx of Anesthesia Complications (with exception to PONV ) and No Family Hx of Anesthesia Complications History of PONV No Hx of Motion Sickness and History of PONV (s/p hysterectomy ) Social History Smoking Status: Never smoker Do You Dip or Chew Tobacco: No Hx Alcohol Use: Yes (none for years) Hx Substance Use: No substance use type: does not use Review of Systems - Hx of snoring- hx of sleep study- no NIMESH Patient denies chest pain, shortness of breath, dyspnea on exertion, cough, wheezing, palpitations. No hx of seizures, stroke, LA. No hx of blood clots or blood transfusions Physical Exam Vital Signs VITALS BP 143/82 P 64 TEMP 98.5 SP02 94% RESP 16 Constitutional no acute distress ENMT Mouth: no TMJ clicking Thyromental Distance: < 3.5 Finger Breadths (3.0) Mallampati Class: III Caps to side teeth and molars Neck + limited neck extension (minimal ) Respiratory normal respiratory effort; no respiratory distress Auscultation: lungs clear to auscultation bilaterally; no wheezes Cardiovascular Rate/Rhythm: regular rate and regular rhythm Heart Sounds: no murmur Vessels: no carotid bruit Musculoskeletal Spine: no pain with cervical ROM Extremities: extremities normal to inspection Psychiatric Orientation: alert Lab Results Anesthesia Preop Results Results Anesthesia Widget: WBC 7.43 K/ul (4.8-10.8) 06/24/23 Hgb 14.1 g/dl (12.0-16.0) 06/24/23 Hct 41.0 % (37.0-47.0) 06/24/23 Plt 292 K/uL (130-400) 06/24/23 Na 136 mmol/L (136-145) 06/24/23 K 4.0 mmol/L (3.5-5.1) 06/24/23 Cl 104 mmol/L (98-107) 06/24/23 CO2 23 mmol/L (21-32) 06/24/23 BUN 21 mg/dl (6-23) 06/24/23 Creat 0.79 mg/dl (0.6-1.2) 06/24/23 Glucose Level 100 mg/dl (70-99(Fasting)) H 06/24/23 PT 10.6 Seconds (9.0-12.0) 06/24/23 PTT 28.7 Seconds (21.0-31.0) 06/24/23 INR 1.0 (0.9-1.1) 06/24/23 Urine Color Yellow 06/24/23 Urine Appearance Clear (Clear) 06/24/23 Urine pH 5.5 (4.5-7.5) 06/24/23 Urine Specific Strunk 1.014 (1.000-1.030) 06/24/23 Urine Protein Negative (Negative) 06/24/23 Urine Glucose (UA) Negative (Negative) 06/24/23 Urine Ketones Negative (Negative) 06/24/23 Urine Blood Negative (Negative) 06/24/23 Urine Nitrite Negative (Negative) 06/24/23 Urine Bilirubin Negative (Negative) 06/24/23 Urine Urobilinogen Negative (Negative) 06/24/23 Urine Leukocyte Esterase Negative (Negative) 06/24/23 Blood Type O Positive 06/24/23 Antibody Screen NEGATIVE 06/24/23 Testing Electrocardiogram Date: 02/10/23 Findings: + NSR @ (100bpm ) Minimal voltage criteria for LVH, may be normal variant (R in aVL) Chest X-Ray Date: 02/10/23 Findings: + NAD Echocardiogram Date: 08/23/18 EF: 60-65% LV Function: normal RWMA: + none Other Findings: + diastolic dysfunction (Grade I ); no LVH Valvular Disease: + no significant valvular disease
[~2023-07-10 07:01] MED LIST changes: -ACET-1256 PO; +BUPIVACAINE 0.5 % 5 MG/1 ML PF 10ML VIAL ONE; +EPINEPHrine INJ 1 MG/ML AMP ONE; +LR 500ML BOLUS, THEN 15ML/HR IV SCH; +LR 60ML/HR IV SCH; -OMEP20CA9 PO; -PTDOPS OPB; +ROPIVACAINE 0.5% 5 MG/ML 30 ML VIAL ONE; +ROPIVACAINE 0.5% HCL/PF 150 MG, BUPIVACAINE 0.75% MPF 20 ML, EPINEPHrine 0.15 MG, Ketor... INFIL SCH; -SALI-3 NAE; +TRANEXAMIC ACID 1,000 MG **IV Pre-op IV SCH; +TRANEXAMIC ACID 1,000 MG x 1 **For Topical Use Intraop TOP SCH; -VNTHFA/IN INH; -ZLF/50 PO; +ceFAZolin 2000MG 2,000 MG/15 ML SYR IV SCH
[2023-07-10] MEDS ORDERED: fentaNYL citrate PF 100 MCG/2 ML VIAL ONE (07:17)
[2023-07-10] MEDS ORDERED: MIDAZOLAM HCL 1 MG/ML 2ML VIAL ONE (07:18)
[2023-07-10] MEDS ORDERED: ORTHO JOINT ANESTHETIC ONE (09:06)
--- NOTE | 2023-07-10 09:11 | History & Physical Bridge Note ---
Date of Service July 10, 2023 History & Physical Bridge Note I have examined the patient, reviewed the History & Physical and in the interval since the performance of the History & Physical I have noted the following changes of clinical significance: no changes noted
[2023-07-10] MEDS ORDERED: PROPOFOL IV EMULSION 10 MG/ML 20 ML VIAL IV ONE (09:35)
[2023-07-10] MEDS ORDERED: ONDANSETRON INJ 2 MG/ML 2 ML VIAL ONE (09:37)
[2023-07-10] MEDS ORDERED: ePHEDrine sulfate 50 MG/ML AMP IV PRN (10:11)
[2023-07-10] MEDS ORDERED: ATROPINE SULFATE 0.1 MG/ML 10ML SYR IV PRN (10:11)
--- NOTE | 2023-07-10 10:50 | Post Operative Brief Note ---
Immediate Post Op Note v1 Date of Surgery July 10, 2023 Pre & Post Diagnosis Osteoarthritis left knee preop diagnosis postop diagnosis same Operation Date: 07/10/23 08:50 <No data on this case meets the specified criteria> I identified the patient and participated in the time-out.: Yes Procedure Cemented left total knee replacement Operation Date: 07/10/23 08:50 <No data on this case meets the specified criteria> Surgeon Mychal Scherer MD [facility] Est[facility] Blood Loss 25 Findings Consistent with Post-Op Diagnosis Severe medial and patellofemoral osteoarthritis Fluids See anesthesia report
--- NOTE | 2023-07-10 10:53 | Operative Report ---
Post Operative Report Procedure Date: July 10, 2023 Pre & Post Diagnosis: [Osteoarthritis left knee preop diagnosis Postop diagnosis osteoarthritis left knee with varus deformity.] Time Out: I identified the patient and participated in the time-out. Procedure: Cemented left total knee replacement [] Surgeon: [Gilmer] Chief Gauger: [] Aleta Estimated Blood Loss: [25 cc] Findings: [Severe medial compartment disease severe lateral patellofemoral disease] Specimens: [Bone] Description of Procedure: [After the patient was appropriate notified site verify consent provide antibiotics confirmed to be given the left lower extremity was prepped and draped use routine fashion. Tourniquet plated to 275 mmHg exsanguination limb with a rubber Esmarch bandage for total of 44 minutes. Midline exposure was utilized. Parapatellar neurotomy performed. Synovectomy completed osteophytes resected. There was grade 4 disease throughout the medial compartment both on the tibia and the femur there was grade 4 disease in the lateral facet of the patella lateral compartment was relatively healthy. Once the distal femur was entered the cruciates were resected tibia subluxated menisci resected. Distal femur was resected 12 mm proximal tibia 4 mm the extension gap was excellent. Femur was sized to 2-1/2 it was appropriately covered 2 and half block with anterior posterior, chamfer cuts made the flexion gap checked and was excellent. The posterior capsule was then injected with Ortho mix. Box cut was then made. A size 2 and half tibia was then placed in the appropriate broaching and reaming carried out. Trial reduction was carried out and was excellent. The flexion gap was excellent prior to this. The patella tracked well. The patella was quite small was resected leaving about 12 to 13 mm 35 button seating holes made and the button tracked well. Orthofix was not then injected all about the knee the knee was irrigated with Betadine soaked in this for about a minute half to 2 minutes then irrigated and then the permanent cemented into position tibia femur patella in that order after 12 minutes the tourniquet was deflated minor bleeding points controlled electrocautery at 14 minutes trial spacer was removed there was irrigated again with Betadine and Pulsavac there was no cement removal required. The permanent liner was then seated the knee was then reduced and closed at 40 degrees of flexion with #2 Vicryl 2-0 Vicryl and standstill clips appropriate dressing applied patient transferred recovery in satisfactory send he tolerated procedure well. Summary of implant size 2-1/2 posterior cruciate substituting femur size 2-1/2 mobile-bearing tray size 35 patella spacer 2.5 x 10 mm rotating platform posterior cruciate substituting insert 2 bags of Palacos G cement. These are all DePuy J&J rotating platform knee. Cement was of Palacos G 2 packs EBL was 25 cc crystalloid per anesthesia bone pathology pending DVT prophylaxis per protocol. Attestation: I attest to the content of the Intraoperative Record and any orders documented therein. Any exceptions are noted below.
--- NOTE | 2023-07-10 10:56 | Discharge Summary ---
Date of Service July 11, 2023 Admission HPI Per Admitting Provider Severe left knee pain x-rays revealing end-stage medial compartment disease. Principal Diagnosis Osteoarthritis left knee status post left total knee replacement cemented Discharge Data Allergies Allergy/AdvReac Type Severity Reaction Status Date / Time codeine AdvReac Intermediate Vomiting Verified 07/10/23 07:49 Penicillins AdvReac Intermediate Vomiting Verified 07/10/23 07:49 Wjqxram-VYM-NnD Reductase AdvReac Intermediate CARRIER OF Verified 07/10/23 07:49 Inhibitor MD--INCREASED [Yqjifiw-Ign-Zbi Reductase MUSCLE Inhibitor] ACHES Vaccinations None Consultations None Procedures Performed Operation Date: 07/10/23 08:50 Actual Procedures p Left Total Knee Arthroplasty(Left) - Mychal Scherer MD Ordered Studies 07/10/23 05:00 US - OR guided needle placemen Routine Hospital Course (1) Status post left knee replacement: Plan Care pathway for total knee replacement Total Time Total Time Spent Total Time Spent (In Minutes): 5 minutes Discharge Plan Discharge Items Patient Disposition: Transfer Inpatient Rehab Fac Reason For Visit: Left Knee Degenerative Joint Disease Discharge Diagnosis: Left knee status post total knee replacement Condition on Discharge: Good Activity: Per Instructions section Lifting: No more than 5 pounds Bathing: Keep incision dry Bathing Comment: keep it covered until the efraín have been removed Sexual Activity: Wait until after follow-up appointment Exercise/Sports: Wait until after follow-up appointment Driving/Machine Use: No driving until cleared by Dr. Scherer Weightbearing: Full weightbearing Non-emergency contact: Surgeon Call non-emergency contact if: you have any medication questions, your pain is not controlled, your temperature is above 101, your temperature is above 101.5, your wound has increased redness, your wound has increased drainage and your wound pain has increased Follow-up/Referrals: Carlos Siddiqi MD [Primary Care Provider] - Diet: Heart Healthy Addtl Attending Provider Instructions: New Medicine: * You will likely be taking one or more of these medications: 1. Percocet - Take, as directed, when you need it, every four to six hours to control your pain. 2. Iron Sulfate - Take 1 time each day for the month after surgery to help you replace the blood lost during surgery. 3. Coumadin - Thins your blood to lessen the chance of forming a blood clot. The dose of this is different for each person and is based on your blood tests that are done twice a week. * The most common side effects of pain medicine and iron are nausea and constipation. If nausea or constipation is too much of a problem or if you have any questions about your new medicines or doses, call [facility] at . We will try to help you manage these issues. "VERY IMPORTANT TO READ AND REVIEW" Blood Clots and Blood Thinning Medicine: * You are given Coumadin during the immediate post-operative period to lessen the risk of blood clots forming in your legs and/or lungs. Coumadin is usually given for six weeks after surgery. * The prescription is for 2 mg tablets. At discharge, you should understand your dose and take it all at the same time every day, preferably after dinner. * You need to get your blood checked 1 - 2 times per week for six weeks or as directed. * If your dose needs to change, we will call you. Do not take your medication on the day of the blood test until we call you. Pain: * The immediate post-operative period after knee replacement surgery is often quite painful. * You are given a prescription for pain medicine. You should take it, as directed, when you need it, especially before physical therapy and before going to bed. Pain that interferes with sleep is very common and can last several months. * You will likely need pain medicine for the first four to six weeks. It will not stop all of the pain. The pain will lessen and as you feel better, you may change to milder pain medicine such as Tylenol. * The most common side effects of pain medicine are nausea and constipation, so don't take more than you need. Physical Therapy: * You will have physical therapy two or three times each week for four to six weeks after your surgery in order to regain your knee range of motion and to retrain your knee to work properly. * It is just as important to make sure you are getting your knee perfectly straight as it is to regain your knee bend. * Taking a pain pill an hour before therapy can help you have a more productive and comfortable therapy session if needed. Home Exercise: * You were shown a series of exercises (heel props, heel slides, etc.) in the hospital. Do these exercises three to four times each day including the exercises you were shown in physical therapy. Walking: * Get up and walk several times each day. For the first four weeks, try not to stand or walk for more than one hour at a time. If you do stand or walk for more than one hour, you will not hurt anything, but your knee and leg will likely swell. * As you feel comfortable, you may change from the walker or crutches to a cane and then to independent walking. SELF CARE INSTRUCTIONS AFTER TOTAL KNEE REPLACEMENT A. You may need to continue a physical therapy program after discharge from the hospital. There are several options available to you. Your doctor will assist you in selecting the best one for you. 1. An out-patient facility 2 to 3 times a week for therapy or home therapy. 2. Continue working on all exercises taught to you in the hospital. Your goals should be to increase bending of your knee to 90 degrees and beyond and to fully straighten your knee. B. You may progress at your own pace from walking with a walker or crutches to a cane; then to no assistive devices. C. Make walking a part of your daily routine. Be up as much as comfortable with rest periods throughout the day. Rest with leg elevation is very important. Use the ice wrap frequently for the first 3-4 weeks. D. There are no restrictions on activities. You may ride in a car, shop, participate in sales and marketing assistant and all social activities. E. Wear the long elastic stockings (BERNIE hose) 20 hours a day for six weeks after surgery. They can be removed several times a day for laundering and for a shower. F. Do not place a pillow behind your knee when resting. A pillow at your ankle is okay. VERY IMPORTANT TO READ AND REVIEW A. Take Coumadin, Aspirin or Lovenox (blood thinning medications) as directed by your doctor. If on Coumadin, have a pro-time (blood test) drawn according to your doctor's instructions. This will tell the doctor how well the Coumadin is thinning your blood. 1. YOU WILL BE GIVEN AN ORDER AT DISCHARGE FOR PT/INR (BLOOD WORK). PLEASE HAVE THIS DONE INSTRUCTED. PLEASE CALL OUR OFFICE AFTER YOUR BLOODWORK IS COMPLETE SO WE CAN TRACK YOUR RESULTS. IF YOU ARE GOING TO OUTPATIENT PHYSICAL THERAPY, YOU WILL NEED TO GO TO OUTPATIENT TESTING TO HAVE IT DRAWN. B. There are a few signs you need to watch for after you are home. Call [facility] if you notice any of the followin. Increased severe knee pain. Some pain is expected especially when you exercise. 2. Increased swelling in your leg or knee; pain or swelling of the calf muscle in either lower leg. 3. Any fluid drainage from the incision. 4. Shortness of breath or chest pain. C. Please call [facility] at if you have any concerns or questions about your operation or recovery. The doctor or his nurse will return your call promptly. D. You must take antibiotics before dental work, bladder, bowel or other surgery. Call the office to obtain a prescription at least 2 days prior to your appointment. * CALL IF INCREASED PAIN, REDNESS, DRAINAGE OR FEVER GREATER THAT 101. * Sutures should be removed 12-14 days after surgery unless you are on chronic steroids, then it will be 14-18 days after surgery. Call your doctor if: * Temperature above 101 degrees F. * Pain not relieved by pain medicine ordered. * Increased drainage or redness from incision. * Notify your doctor with any questions or concerns. Please keep the INR between 1.8 and 2.2. Ice and elevate the knee frequently to reduce pain and swelling Use the walker for ambulation. Use the knee immobilizer when out of bed on , and Saturday. It may be discontinued entirely on Saturday morning. Pending Studies at Discharge: Yes Studies:: Bone pathology Stand-Alone Forms: My [facility] Skilled Items Patient informed of condition?: Yes Discharge Level of Care: Acute rehab Communicable Disease: No Discharge Prognosis: Stable Lines: None Urinary Catheter: No Medications and DC Order Prescriptions: No Action losartan 100 mg tablet 100 mg PO QAM albuterol sulfate [Ventolin HFA] 90 mcg/actuation HFA aerosol inhaler 2 inh INHALATION QID PRN (Reason: Wheezing) Qty: 8.5 6RF pantoprazole 40 mg tablet,delayed release (DR/EC) 40 mg PO BID Qty: 180 3RF sertraline [Zoloft] 50 mg tablet 50 mg PO HS calcium carbonate [Calcium 600] 600 mg calcium (1,500 mg) Tablet 600 mg PO BID atenolol 50 mg tablet 50 mg PO QAM amoxicillin 500 mg Tablet 500 mg PO Q8H Rx Instructions: pt taking after dental procedure on 07/04/23 Discharge Orders: Discharge Order (Routine); Ordered 07/11/23 Ordered By: Mychal Scherer Admission Data Admit Date/Time: 07/10/23 11:09 Attending Provider: Mychal Scherer Admit Provider: Mychal Scherer Primary Care Provider: Carlos Siddiqi. Other Providers: [facility]
--- NOTE | 2023-07-10 10:56 | Orthopedic Progress Note ---
Date of Service July 10, 2023 Assessment & Plan (1) Status post left knee replacement: Plan Continue care pathway for total knee replacement. Orthopedic Progress Note Patient tolerated left total knee replacement well vital signs are stable she is afebrile denies any chest pain shortness of breath fever chills nausea vomiting or headache. X-rays pending.
--- NOTE | 2023-07-10 11:03 | Operative Report ---
Post Operative Report Pre & Post Diagnosis Operation Date: 07/10/23 08:50 Pre-Op Diagnosis: Left Knee Degenerative Joint Disease Post-Op Diagnosis: Left Knee Degenerative Joint Disease I identified the patient and participated in the time-out.: Yes Procedure Operation Date: 07/10/23 08:50 Actual Procedures p Left Total Knee Arthroplasty(Left) - Mychal Scherer MD Surgeon LEDA Scherer MD Superintendent Of [employer] Aleta WILL Estimated Blood Loss 25 Findings Consistent with Post-Op Diagnosis see operative report Specimens see operative report Drains none Complications none Disposition Accompanied Patient To Recovery: Yes Indications This 72-year-old female presented to the office with complaints of persisting left knee pain. She had tried conservative care measures including activity modification, home exercise program, OTC medications, corticosteroid injection, and viscosupplementation injections, without lasting improvement. She elected to proceed with surgical intervention after being educated about potential risks and outcomes. Preoperative imaging was obtained. Description of Procedure The patient was administered a spinal anesthetic and then taken to the operating room where she was given sedation. She was prepped and draped in the usual sterile fashion. Please see Dr. Scherer's operative report for specifics of the procedure. I was present for the entire case from initial patient positioning through final wound closure. Assistance was provided in tissue retraction, hemostasis, trial implant placement, final implant placement, and final wound closure. The patient was taken to the recovery room in satisfactory condition. I attest to the content of the Intraoperative Record and any orders documented therein. Any exceptions are noted below.
--- NOTE | 2023-07-10 12:00 | Anesthesiology Progress Note ---
Date of Service July 10, 2023 Anesthesia Post Procedure Vital Signs Vital Signs: Temp Pulse Pulse Resp BP Pulse Ox O2 Del Method 07/10/23 11:50 65 19 146/78 H 95 Nasal Cannula 07/10/23 11:40 65 15 140/72 96 Nasal Cannula 07/10/23 11:30 65 19 146/75 H 96 Nasal Cannula 07/10/23 11:20 73 16 140/75 96 Nasal Cannula 07/10/23 11:10 69 16 141/76 H 95 Nasal Cannula 07/10/23 11:00 36.0 C L 82 20 126/68 94 Oxymask 07/10/23 07:52 36.7 C 59 L 18 121/72 95 Room Air O2 Flow Rate 07/10/23 11:50 2 07/10/23 11:40 2 07/10/23 11:30 2 07/10/23 11:20 2 07/10/23 11:10 2 07/10/23 11:00 4 07/10/23 07:52 Transfer of Care Handoff Completed per policy Notes Mental Status: alert / awake / arousable Patient Amnestic to Procedure: Yes Nausea / Vomiting: adequately controlled Pain: adequately controlled Airway Patency, RR, SpO2: stable & adequate BP & HR: stable & adequate Hydration State: stable & adequate Neuraxial Anesthesia: was administered and sensory block is resolving Anesthetic Complications: no major complications apparent
[2023-07-10] MEDS ORDERED: ALBUTEROL HFA 8 GM INHALER INH PRN (12:29)
[2023-07-10] MEDS ORDERED: NALOXONE HCL 0.4 MG/1 ML VIAL/CARP IV PRN (12:29)
[2023-07-10] MEDS ORDERED: diphenhydrAMINE 50 MG/ML VIAL IV PRN (12:29)
[2023-07-10] MEDS ORDERED: bisacodyL 10 MG SUPP PR PRN (12:29)
[2023-07-10] MEDS ORDERED: METOCLOPRAMIDE HCL INJ 5 MG/ML 2 ML VIAL IV PRN (12:29)
[2023-07-10] MEDS ORDERED: ALUMINUM/MAGNESIUM SUSP 30 ML UDC PO PRN (12:29)
[2023-07-10] MEDS ORDERED: HYDROmorphone INJ 0.5 MG/0.5 ML SYR IV PRN (12:29)
[2023-07-10] MEDS ORDERED: MAGNESIUM HYDROXIDE SUSP 30 ML UDC PO PRN (12:29)
[2023-07-10] MEDS: KETOROLAC TROMETHAMINE 15 MG/ML VIAL IV SCH ×2 (13:19→18:26)
[2023-07-10] MEDS: ACETAMINOPHEN 500 MG TAB PO SCH ×2 (13:19→21:51)
[2023-07-10] MEDS: SODIUM CHLORIDE 0.9% 1,000 ML IV SCH ×2 (13:19→23:35)
[2023-07-10] MEDS: ORTHO WARFARIN NOMOGRAM SCH (13:22)
[2023-07-10] MEDS: ONDANSETRON INJ 2 MG/ML 2 ML VIAL IV PRN (13:39)
--- NOTE | 2023-07-10 13:58 | XRay Report ---
XR knee LT 1 or 2V routine CLINICAL HISTORY: S/P L TKA COMPARISON: Left knee radiographs February 05, 2023. FINDINGS: Alignment of the total left knee arthroplasty is anatomic. There is no periprosthetic frac ture or unexpected radiopaque foreign body. There are skin efraín. IMPRESSION: Expected findings following total left knee arthroplasty. ACT 112: Negative or not required by law. Electronically signed by: Yao Rosario M.D. 07/10/2023 1:57 PM
[2023-07-10] MEDS ORDERED: WARFARIN SOD 5 MG TAB PO SCH (16:00)
[2023-07-10] MEDS ORDERED: INFLUENZA VACCINE HIGH-DOSE (HD-IIV4) PF 65+ 0.7mL SYR IM ONE (16:00)
[2023-07-10] MEDS: FERROUS GLUCONATE 324 MG TAB PO SCH (16:35)
[2023-07-10] MEDS: ASCORBIC ACID 500 MG TAB PO SCH (16:36)
[2023-07-10] MEDS ORDERED: TRANEXAMIC ACID / 0.7% NACL 1,000 MG/100 ML BAG IV SCH (17:15)
[2023-07-10] MEDS: ceFAZolin 2000MG 2,000 MG/15 ML SYR IV SCH (21:51)
[2023-07-10] MEDS: DOCUSATE SODIUM 100 MG CAP PO SCH (21:52)
[2023-07-10] MEDS: PANTOprazole 40 MG TAB PO SCH (21:52)
[2023-07-10] MEDS: SERTRALINE HCL 50 MG TABLET PO SCH (21:53)
[2023-07-10] MEDS: SENNA 8.6 MG TAB PO SCH (21:53)
[2023-07-10] MEDS ORDERED: Nursing to Pharmacy Communication SCH (23:00)
[2023-07-11] MEDS ORDERED: Nursing to Pharmacy Communication SCH (00:15)
[2023-07-11] MEDS: KETOROLAC TROMETHAMINE 15 MG/ML VIAL IV SCH ×2 (01:29→07:28)
[2023-07-11] MEDS: ACETAMINOPHEN 500 MG TAB PO SCH ×3 (06:33→20:10)
[2023-07-11 06:48] LABS: Hematocrit (blood only) 38.3 % (37.0-47.0); Hemoglobin 12.6 g/dl (12.0-16.0); Mean Corpuscular Hemoglobin 29.3 pg (25.0-34.0); Mean Corpuscular Hgb Conc 32.9 g/dL (32.0-36.0); Mean Corpuscular Volume 89.1 fL (80.0-100.0); Mean Platelet Volume 9.2 fL (9.4-12.4); Platelet Count 307 K/uL (130-400); RDW Coefficient of Variation 13.1 % (11.5-14.5); RDW Standard Deviation 42.7 fL (36.4-46.3); White Blood Count 17.89 K/ul (4.8-10.8)
--- NOTE | 2023-07-11 06:55 | Orthopedic Progress Note ---
Date of Service July 11, 2023 Assessment & Plan (1) Status post left knee replacement: Plan Care pathway for total knee replacement Admission and Anticipated Discharge Date Admission Date: July 10, 2023 Orthopedic Progress Note 1. Status post left total knee replacement. Patient sitting up in her chair comfortably. She denies any chest pain shortness of breath fever chills nausea vomiting or headache at this point. Neurovascular check femoral sciatic nerve is normal wound dressing clean dry and intact. Can do strong straight leg raise can do ankle pumps. Hematocrit stable at 38 range. Assessment status post left total knee replacement dressing change this morning by physicians kennel assistant discharge after PT OT. Start Coumadin. Follow-up in 2 weeks ila colindres. Advised to call office if any issues arise. Patient tolerated left total knee replacement well vital signs are stable she is afebrile denies any chest pain shortness of breath fever chills nausea vomiting or headache. X-rays pending.
[2023-07-11 07:11] LABS: BUN Creatinine Ratio 19.1 (10-20); Calcium 8.7 mg/dl (8.6-10.3); Creatinine Clr Calc Pharmacy 57.9 ml/min; Est GFR (African American) 75.6 ml/min; Est GFR (Non-African American) 65.2 ml/min; Potassium 3.8 mmol/L (3.5-5.1)
[2023-07-11 07:17] LABS: INR 1.1 (0.9-1.1); Prothrombin Time 11.7 Seconds (9.0-12.0)
[2023-07-11] MEDS: ceFAZolin 2000MG 2,000 MG/15 ML SYR IV SCH (07:27)
[2023-07-11] MEDS ORDERED: dexAMETHasone 10 MG in SYRINGE 0 ML IV SCH (08:00)
[2023-07-11] MEDS: DOCUSATE SODIUM 100 MG CAP PO SCH ×2 (08:06→20:10)
[2023-07-11] MEDS: PANTOprazole 40 MG TAB PO SCH ×2 (08:07→20:10)
[2023-07-11] MEDS: LOSARTAN POTASSIUM 50 MG TAB PO SCH (08:07)
[2023-07-11] MEDS: ASCORBIC ACID 500 MG TAB PO SCH ×2 (08:07→16:09)
[2023-07-11] MEDS: ATENOLOL 50 MG TABLET PO SCH (08:07)
[2023-07-11] MEDS: MULTIVITAMIN TAB PO SCH (08:07)
[2023-07-11] MEDS: FERROUS GLUCONATE 324 MG TAB PO SCH ×2 (08:07→16:09)
--- NOTE | 2023-07-11 09:19 | Orthopedic Progress Note ---
Date of Service July 11, 2023 Assessment & Plan (1) Status post left knee replacement: Plan: The patient was educated regarding today's findings. Conservative care measures were discussed. Her surgical dressing was changed by me. BERNIE carter was applied. Her daughter is adamant that she go to [facility]. A thorough discussion was held regarding approval by the insurance company and anticipating a backup plan of a fdc facility such as [facility] or [facility]. The patient preferred the [facility], but they do not have any beds. She is refusing to go to [facility]. The daughter would like all avenues exhausted with [facility] before agreeing to a fdc facility. She states she has a long list of concerns about her mother and feels she would be best cared for at [facility]. I did reiterate that it is up to the insurance company as to whether it is approved. Disposition will be determined after approval or denial from her insurance company. Continue with PT/OT. Weight-bear as tolerated on the left leg using her walker. Maximal flexion of 90 degrees. Follow-up in the office in 2 weeks as scheduled for staple removal. INR will need to be kept between 1.8 and 2.2. Admission and Anticipated Discharge Date Admission Date: July 10, 2023 Subjective This 72-year-old female seen today in her room. She is 1 day status post left total knee arthroplasty. She states she did well overnight. She is having minimal pain at this point. She has already been out of bed. She is working with PT at this time. Her daughter is in the room. She denies any chest pain, shortness of breath, nausea, vomiting, or abdominal pain. She is hoping to go to [facility] today. No other complaints. Review of Systems Review of Systems: Unchanged from yesterday. Physical Exam Physical Exam: General: Well-developed, well-nourished, elderly female, in no acute distress. Sitting in a bedside chair. Alert and oriented. Conversant. Skin: Warm and dry with good turgor. No rashes. She has a postsurgical dressing in place on the left knee. Upon removal, she has infected postoperative ecchymosis and intra-articular effusion. [place] are in place. Wound edges well approximated. There is no active drainage. She has scant drainage on her innermost dressings. Musculoskeletal: The patient has intact motor function of her left leg. She is able to perform a straight leg raise. She can set her quad. Intact motor function of the ankle and toes. She has full terminal extension of the knee. Flexion to 60 degrees easily. Strength is 5/5 for resisted dorsiflexion and plantarflexion of the ankle. Neurologic: Gross sensation is intact across the left leg by soft touch. Peripheral pulses are 2+. Results & Data Vital Signs (Past 12 Hours) Vital Signs Temp Pulse Resp BP Pulse Ox O2 Del Method 07/11/23 07:56 36.6 C 80 16 123/71 94 Room Air 07/11/23 04:12 36.4 C L 70 16 136/80 94 Room Air 07/11/23 00:32 36.4 C L 69 16 141/85 H 95 Room Air Laboratory Results CBC obtained today shows a white count of 17.9. H&H of 12.6 and 38.3. Platelets 307,000. INR is 1.1. Sodium 134, potassium 3.8, CO2 23, anion gap of 9. BUN 17 and creatinine 0.9. Glucose this morning is 131.
[2023-07-11] MEDS: ORTHO WARFARIN NOMOGRAM SCH (13:09)
[2023-07-11] MEDS ORDERED: WARFARIN SOD 5 MG TAB PO SCH (16:00)
[2023-07-11] MEDS: SENNA 8.6 MG TAB PO SCH (20:10)
[2023-07-11] MEDS: SERTRALINE HCL 50 MG TABLET PO SCH (20:10)
[2023-07-11] MEDS: oxyCODONE HCL IR 5 MG TAB (IMMEDIATE RELEASE) PO PRN ×2 (22:38→23:18)
[2023-07-12] MEDS: ACETAMINOPHEN 500 MG TAB PO SCH ×3 (05:28→21:41)
--- NOTE | 2023-07-12 06:42 | Orthopedic Progress Note ---
Date of Service July 12, 2023 Assessment & Plan (1) Status post left knee replacement: Plan: The patient was educated regarding today's findings. Conservative care measures were discussed. Her surgical dressing was changed by me. BERNIE axelartie was applied. Her daughter is adamant that she go to [facility]. A thorough discussion was held regarding approval by the insurance company and anticipating a backup plan of a alf facility such as [facility] or [facility]. The patient preferred the [facility], but they do not have any beds. She is refusing to go to [facility]. The daughter would like all avenues exhausted with [facility] before agreeing to a alf facility. She states she has a long list of concerns about her mother and feels she would be best cared for at [facility]. I did reiterate that it is up to the insurance company as to whether it is approved. Disposition will be determined after approval or denial from her insurance company. Continue with PT/OT. Weight-bear as tolerated on the left leg using her walker. Maximal flexion of 90 degrees. Follow-up in the office in 2 weeks as scheduled for staple removal. INR will need to be kept between 1.8 and 2.2. Admission and Anticipated Discharge Date Admission Date: July 10, 2023 Orthopedic Progress Note Postop day #2 status post left total knee replacement.Patient's discharge process has been delayed secondary to insurance issues.She is resting comfortably in bed. She denies chest pain shortness of breath fever chills nausea vomiting or headache.Vital signs are stable she is afebrile.Wound dressing clean dry and intact. Femoral sciatic nerve functions excellent.Calves nontender. Range of motion 0 to 70 degrees easily. Assessment status post total knee replacement left. Pain is well managed with oral medications. Patient is medically indicated to be discharged from acute care facility. Awaiting insurance decisions as to whether would be whether would be in a alf facility for short time versus home with services. Discharge order placed. Discussed this in detail with her and her daughter they state they understand that she needs to be discharged from an acute care facility. 1. Status post left total knee replacement. Patient sitting up in her chair comfortably. She denies any chest pain shortness of breath fever chills nausea vomiting or headache at this point. Neurovascular check femoral sciatic nerve is normal wound dressing clean dry and intact. Can do strong straight leg raise can do ankle pumps. Hematocrit stable at 38 range. Assessment status post left total knee replacement dressing change this morning by physicians assistant professor of radiology discharge after PT OT. Start Coumadin. Follow-up in 2 weeks ila colindres. Advised to call office if any issues arise. Patient tolerated left total knee replacement well vital signs are stable she is afebrile denies any chest pain shortness of breath fever chills nausea vomiting or headache. X-rays pending.
[2023-07-12] MEDS: LOSARTAN POTASSIUM 50 MG TAB PO SCH (08:11)
[2023-07-12] MEDS: ASCORBIC ACID 500 MG TAB PO SCH ×2 (08:11→16:26)
[2023-07-12] MEDS: DOCUSATE SODIUM 100 MG CAP PO SCH ×2 (08:12→21:42)
[2023-07-12] MEDS: ATENOLOL 50 MG TABLET PO SCH (08:12)
[2023-07-12] MEDS: FERROUS GLUCONATE 324 MG TAB PO SCH ×2 (08:12→16:26)
[2023-07-12] MEDS: MULTIVITAMIN TAB PO SCH (08:12)
[2023-07-12] MEDS: PANTOprazole 40 MG TAB PO SCH ×2 (08:12→21:42)
[2023-07-12 10:05] LABS: INR 1.2 (0.9-1.1); Prothrombin Time 13.4 Seconds (9.0-12.0)
[2023-07-12] MEDS: ORTHO WARFARIN NOMOGRAM SCH (13:37)
[2023-07-12] MEDS: oxyCODONE HCL IR 5 MG TAB (IMMEDIATE RELEASE) PO PRN (14:39)
[2023-07-12] MEDS ORDERED: WARFARIN SOD 5 MG TAB PO SCH (16:00)
[2023-07-12] MEDS: SENNA 8.6 MG TAB PO SCH (21:41)
[2023-07-12] MEDS: SERTRALINE HCL 50 MG TABLET PO SCH (21:41)
[2023-07-13] MEDS: ACETAMINOPHEN 500 MG TAB PO SCH ×3 (06:11→20:23)
[2023-07-13] MEDS: PANTOprazole 40 MG TAB PO SCH ×2 (08:36→20:23)
[2023-07-13] MEDS: LOSARTAN POTASSIUM 50 MG TAB PO SCH (08:36)
[2023-07-13] MEDS: DOCUSATE SODIUM 100 MG CAP PO SCH ×2 (08:36→20:23)
[2023-07-13] MEDS: ASCORBIC ACID 500 MG TAB PO SCH ×2 (08:37→17:43)
[2023-07-13] MEDS: FERROUS GLUCONATE 324 MG TAB PO SCH ×2 (08:37→17:43)
[2023-07-13] MEDS: MULTIVITAMIN TAB PO SCH (08:37)
[2023-07-13] MEDS: ATENOLOL 50 MG TABLET PO SCH (08:37)
[2023-07-13] MEDS: ONDANSETRON INJ 2 MG/ML 2 ML VIAL IV PRN (09:50)
[2023-07-13 10:01] LABS: Basophils # (auto) 0.13 K/uL (0.00-0.20); Basophils % (auto) 0.9 %; Eosinophils # (auto) 0.16 K/uL (0.00-0.50); Eosinophils % (auto) 1.1 %; Hematocrit (blood only) 32.8 % (37.0-47.0); Hemoglobin 10.9 g/dl (12.0-16.0); Immature Granulocytes # (auto) 0.22 K/uL (0.01-0.20); Immature Granulocytes % (auto) 1.4 %; Lymphocytes # (auto) 4.84 K/uL (1.20-3.40); Lymphocytes % (auto) 31.8 %; Mean Corpuscular Hemoglobin 29.5 pg (25.0-34.0); Mean Corpuscular Hgb Conc 33.2 g/dL (32.0-36.0); Mean Corpuscular Volume 88.9 fL (80.0-100.0); Mean Platelet Volume 9.4 fL (9.4-12.4); Monocytes # (auto) 1.65 K/uL (0.11-0.59); Monocytes % (auto) 10.8 %; Neutrophils # (auto) 8.23 K/uL (1.40-6.50); Platelet Count 317 K/uL (130-400); RDW Coefficient of Variation 13.6 % (11.5-14.5); Red Blood Count 3.69 M/uL (4.20-5.40); White Blood Count 15.23 K/ul (4.8-10.8)
[2023-07-13 10:17] LABS: Albumin Level 3.8 gm/dl (3.4-5.0); Bilirubin,Total 0.6 mg/dl (0.2-1.0); Calcium 8.8 mg/dl (8.6-10.3); Potassium 3.7 mmol/L (3.5-5.1)
[2023-07-13 10:22] LABS: Albumin Globulin Ratio 1.6 (0.9-2); BUN Creatinine Ratio 23.2 (10-20); Creatinine Clr Calc Pharmacy 62.8 ml/min; Est GFR (African American) 83.4 ml/min; Globulin 2.4 gm/dl (2.5-4.0); Total Protein 6.2 gm/dl (6.0-8.3)
--- NOTE | 2023-07-13 10:48 | Orthopedic Progress Note ---
Date of Service July 13, 2023 Assessment & Plan Admission and Anticipated Discharge Date Admission Date: July 10, 2023 Orthopedic Progress Note Patient had a witnessed vagal attack while doing therapy. She stated that while she was going down the stairs and the new technique for the first time she had experienced pain started to get sweaty felt lightheaded according to the therapist started to hyperventilate and then was lowered to the ground. There was no hard fall. She denies any new pain. She denies chest pain shortness of breath fever chills or nausea. She states she has a low-grade headache. She stated that the knee pain she experienced was the worst that she is felt and caused her to get warm flushed and feel like she was going to pass out. Presently vital signs are stable she is afebrile. O2 sats are in the 90s. Pulse is in the 70s. The blood pressure is 115/70. Hematocrit stable in the 30s White count elevated based on stress and steroid desaturation from several days. Wound was examined its intact there is no issues is clean and stridors neurovascular check is intact femoral sciatic nerve. Both calves are nontender. She has no pain with calf palpation or stretch of the calf. She has intact extensor mechanism to do a straight leg raise. Neurologic exam reveals all cranial nerves to be intact no facial droop. Mentate's well. Is clear and oriented. Assessment vagal episode status post total knee replacement. She is now postop day #3. There has been a lot of issues regarding placement for her to family and her have been adamant about not going home. At this point in time the present status will need to be rescinded as far as discharge today will need evaluation by hospitalist EKG ordered. Laboratory work is already up-to-date. Will discontinue Coumadin and switch to Eliquis. Continue knee immobilizer for gait patterns when full weightbearing for several more days. To her right flexed exercises multiple times a day including behind the heel pad knee stretch into extension as well as knee flexion. Medical consult placed. We will continue to follow.
[2023-07-13] MEDS: ORTHO WARFARIN NOMOGRAM SCH (15:20)
--- NOTE | 2023-07-13 17:34 | Hospitalist Consultation ---
Date of Consultation July 13, 2023 Assessment & Plan (1) Status post left knee replacement: Patient had left total knee arthroplasty 07/10/[address] Scherer. On apixaban for post procedure DVT prevention. (2) Hypertension: Typically taking losartan and metoprolol. Losartan was not held postoperatively and patient likely can be more susceptible to volume loss and orthostasis if ARB and LUZ MARINA inhibitors are used in the postoperative period patient blood work is stable post procedure we will hold her losartan and provide additional hydration overnight reevaluating blood pressure the morning (3) Vasovagal syncope: Likely vasovagal syncope encouraged by orthostasis and pain given the fact that she has been on DVT prevention with apixaban not suspicious of pulmonary embolism. The patient did not have tachycardia although she is on a beta-block er. History of Present Illness Attending Physician: Mychal Scherer MD History of Present Illness Craig hester was called in the morning of 101 patient had an episode of dizziness lightheadedness bradycardia and nausea after physical therapy session. Patient states she had significant pain during the physical therapy session as she is recently undergone a left total knee replacement by Dr. Scherer on 07/10/2023. Upon my evaluation at the scene the patient was conscious and speaking she was appropriate her blood pressure was never low although her heart rate was in the 60s. Her leg did have his typical postoperative swelling and teds were in place. Patient is on apixaban for DVT prevention post procedure. Patient recovered well was resting comfortably after the code purple was complete Allergies Allergy/AdvReac Type Severity Reaction Status Date / Time codeine AdvReac Intermediate Vomiting Verified 07/10/23 07:49 Penicillins AdvReac Intermediate Vomiting Verified 07/10/23 07:49 Rwmsfpu-ZUK-EdU Reductase AdvReac Intermediate CARRIER OF Verified 07/10/23 07:49 Inhibitor MD--INCREASED [Faybfdq-Efg-Tve Reductase MUSCLE Inhibitor] ACHES Home Medications Medication Instructions Recorded Confirmed Type calcium carbonate 600 mg calcium 600 mg PO BID 08/20/19 07/10/23 History (1,500 mg) tablet (Calcium) sertraline 50 mg tablet (Zoloft) 50 mg PO HS 04/04/22 07/10/23 History pantoprazole 40 mg tablet,delayed 40 mg PO BID #180 tabs 10/31/22 07/10/23 Rx release albuterol sulfate 90 mcg/actuation 2 inh inhalation QID PRN Wheezing 03/06/23 07/10/23 Rx aerosol inhaler (Ventolin HFA) #8.5 grams losartan 100 mg tablet 100 mg PO QAM 03/06/23 07/10/23 History atenolol 50 mg tablet 50 mg PO QAM 06/14/23 07/10/23 History amoxicillin 500 mg tablet 500 mg PO Q8H 07/10/23 07/10/23 History Patient History Medical History Anxiety and depression Asthma 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 Chronic rhinitis GERD (gastroesophageal reflux disease) History of Helicobacter pylori infection Hypertension Nausea and vomiting after administration of anesthetic agent Tachycardia Surgical History History of bilateral tubal ligation History of cardiac cath History of colonoscopy History of dilatation and curettage History of left breast biopsy History of tooth extraction History of total hysterectomy with bilateral salpingo-oophorectomy (BSO) Status post correction of deviated nasal septum Family History Family/Other Coronary heart disease Father Family history of diabetes mellitus Mother Hypertension Daughter Family history of reaction to anesthesia difficulty waking Other No pertinent family history Social History Smoking Status: Never smoker Second Hand Exposure: No; Do You Dip or Chew Tobacco: No; Tobacco Cessation Education Requested by Patient: No Hx Alcohol Use: Yes (none for years) Hx Substance Use: No Preferred Language: Wolof Communication Ability: Effective Dredge Mechanic Required: No Beliefs That Will Affect Care: None Current Living Situation: Alone current occupational status: retired Other Information That Helps Us Care for You: No Feels Safe at Home: Yes Safety Concerns: Feels Safe At This Time Assistive Devices: Walker Assistive Devices Comment: walking stick Review of Systems Review of Systems: Mod distress and nausea during the code purple since resolved no headache, no visual changes no speech or swallowing issues no chest pain, pressure or palpitations no shortness of breath, cough or wheezes no abdominal pain no dysuria, hematuria or frequency Patient has left joint pain and postoperative swelling no back pain, CVA tenderness or radicular pain no bruising, bleeding or rashes no focal signs of weakness or numbness or altered sensation no complaints of anxiety or depression.. Physical Exam Physical Exam: The patient appeared well nourished and normally developed. Vital signs as documented. Head exam is normocephalic atraumatic Neck is without JVD, thyromegaly, or carotid bruits. Lungs are clear to auscultation, no focal loss of breath sounds Cardiac exam, Rhythm is regular.. No murmurs, rubs or gallops. Abdominal exam reveals normal bowel sounds, soft non tender, no masses Left lower extremity dressing is placed teds are in place there is 1+ edema there is tenderness to examination and flexion Neurologic exam is alert and oriented, no focal loss of strength or sensation Skin is without bruises or rashes Psychologically is without concerns for anxiety or depression.. Results & Data Results & Data Vital Signs (Past 12 Hours) Vital Signs Temp Pulse Resp BP BP Pulse Ox O2 Del Method 07/13/23 15:31 98.2 F 69 16 112/70 94 Room Air 07/13/23 10:02 96 Nasal Cannula 07/13/23 10:01 97.9 F 67 20 111/73 87 L Room Air 07/13/23 07:50 97.9 F 74 16 127/79 96 Room Air O2 Flow Rate 07/13/23 15:31 07/13/23 10:02 3 07/13/23 10:01 07/13/23 07:50 Laboratory Results Reviewed CBC reviewed chemistry PG Care Time/CCT Total # of Minutes Spent Total Time Spent with Patient: Total time spent is greater than 50% in coordination of care (as documented) at patient's floor/unit and/or counseling patient: Coding Level of Care Code 84498 IN/OBS CONSULT LVL 3,45M Diagnoses Status post left knee replacement Z96.652 Hypertension I10 Vasovagal syncope R55
[2023-07-13] MEDS ORDERED: SODIUM CHLORIDE 0.9% 1,000 ML IV SCH (17:45)
[2023-07-13] MEDS: APIXABAN 2.5 MG TAB PO SCH (20:23)
[2023-07-13] MEDS: SERTRALINE HCL 50 MG TABLET PO SCH (20:23)
[2023-07-13] MEDS: SENNA 8.6 MG TAB PO SCH (20:23)
[2023-07-14] MEDS: ACETAMINOPHEN 500 MG TAB PO SCH ×3 (05:17→20:38)
[2023-07-14] MEDS: ASCORBIC ACID 500 MG TAB PO SCH ×2 (08:03→16:24)
[2023-07-14] MEDS: FERROUS GLUCONATE 324 MG TAB PO SCH ×2 (08:04→16:25)
[2023-07-14] MEDS: DOCUSATE SODIUM 100 MG CAP PO SCH ×2 (08:04→20:39)
[2023-07-14] MEDS: MULTIVITAMIN TAB PO SCH (08:04)
[2023-07-14] MEDS: ATENOLOL 50 MG TABLET PO SCH (08:04)
[2023-07-14] MEDS: APIXABAN 2.5 MG TAB PO SCH ×2 (10:03→20:39)
[2023-07-14] MEDS: PANTOprazole 40 MG TAB PO SCH ×2 (10:04→20:38)
--- NOTE | 2023-07-14 10:13 | Orthopedic Progress Note ---
Date of Service July 14, 2023 Assessment & Plan Admission and Anticipated Discharge Date Admission Date: July 13, 2023 Orthopedic Progress Note Patient is feeling well this morning. She denies any chest pain shortness of breath fever chills nausea or vomiting or headache. She has no further episodes since the 1 yesterday morning. She is just finished with physical therapy. She did with the knee immobilizer on and had no issues going up and down the stairs. Historically yesterday she went down with the good leg first at which put more pressure on her bad leg. She is understanding abdominal at the involved leg and then up with a good leg. This will help up with her pain. Vital signs are stable she is afebrile. Neurovascular check from the sciatic nerve is normal. Calves nontender. Wound dressing clean dry and intact. Assessment moving reasonably well. Is becoming more independent. This point in time suggest removing the knee immobilizer doing some trial walking without it. Pain is well controlled with Tylenol. Blood pressure issues have resolved with the changing in her medications per hospitalist. We will leave the final recommendation for that with her hospitalist and her primary care doctor. She will be discharged on Eliquis 2.5 mg p.o. twice daily for DVT PE prophylaxis. Await final insurance authorization for her to go to residential versus home with services. This was once again discussed in detail with her and her daughter.
--- NOTE | 2023-07-14 15:07 | Hospitalist Progress Note ---
Date of Service July 14, 2023 Assessment & Plan (1) Status post left knee replacement: Plan: Patient had left total knee arthroplasty 07/10/[address] Scherer. On apixaban for post procedure DVT prevention. (2) Hypertension: Plan: Typically taking losartan and metoprolol. All losartan restarted at discharge (3) Vasovagal syncope: Plan: Likely vasovagal syncope encouraged by orthostasis and pain given the fact that she has been on DVT prevention with apixaban not suspicious of pulmonary embolism. The patient did not have tachycardia although she is on a beta- mo. Admission and Anticipated Discharge Date Admission Date: July 13, 2023 Subjective Patient was seen on 1014. He was ambulating in the gay with physical therapy. She had no additional dizziness lightheadedness or sweatiness. Laboratories were reviewed on 1013 and are stable in the postoperative state Physical Exam Physical Exam: Awake alert appropriate. Card exam is regular lungs are clear Results & Data Results & Data Vital Signs (Past 12 Hours) Vital Signs Temp Pulse Resp BP BP Pulse Ox O2 Del Method 07/14/23 15:03 97.7 F 65 16 133/79 98 Room Air 07/14/23 07:59 72 141/80 H 07/14/23 06:30 99.0 F 64 18 117/73 95 Room Air PG Care Time/CCT Total # of Minutes Spent Total Time Spent with Patient: Total time spent is greater than 50% in coordination of care (as documented) at patient's floor/unit and/or counseling patient: Coding Level of Care Code 89847 SUB INP/OBS CARE 1/25MIN Diagnoses Status post left knee replacement Z96.652 Hypertension I10 Vasovagal syncope R55
[2023-07-14] MEDS: SERTRALINE HCL 50 MG TABLET PO SCH (20:39)
[2023-07-14] MEDS: SENNA 8.6 MG TAB PO SCH (20:39)
[2023-07-15] MEDS: ACETAMINOPHEN 500 MG TAB PO SCH ×2 (05:26→13:40)
--- NOTE | 2023-07-15 07:18 | Orthopedic Progress Note ---
Date of Service July 15, 2023 Assessment & Plan Admission and Anticipated Discharge Date Admission Date: July 13, 2023 Orthopedic Progress Note Patient is about up and is moving around. Is walking without her knee immobilizer feels more confident. She denies any chest pain shortness breath fever chills nausea vomiting or headache. Vital signs are stable she is afebrile. Neurovascular check from sciatic nerve is normal. Range of motion is from near 0 to near 70 degrees. Wound dressing clean dry and intact calves nontender. Assessment doing well at this point in time issues regarding insurance and placement remain looming. Will place discharge order today and hopefully will be able to get her placed. Follow-up in 10 days for staple removal. Continue Eliquis.
[2023-07-15] MEDS: DOCUSATE SODIUM 100 MG CAP PO SCH (07:39)
[2023-07-15] MEDS: MULTIVITAMIN TAB PO SCH (07:39)
[2023-07-15] MEDS: ASCORBIC ACID 500 MG TAB PO SCH (07:39)
[2023-07-15] MEDS: APIXABAN 2.5 MG TAB PO SCH (07:39)
[2023-07-15] MEDS: PANTOprazole 40 MG TAB PO SCH (07:39)
[2023-07-15] MEDS: FERROUS GLUCONATE 324 MG TAB PO SCH (07:39)
[2023-07-15] MEDS: ATENOLOL 50 MG TABLET PO SCH (07:39)
--- NOTE | 2023-07-15 13:02 | Discharge Summary ---
Date of Service July 15, 2023 Admission HPI Per Admitting Provider Admission date 07/10/2023 Discharge date 07/15/2023 Admitting physician: LEDA Scherer MD Consulting physician: Kaden Ruby MD Discharge disposition: To home, with home health services HPI: This 72-year-old female presented to the office with complaints of persisting left knee pain. She had tried conservative care measures including activity modification, oral pain medication, oral anti-inflammatories, injection therapy, and physical therapy, without lasting improvement. She elected to proceed with surgical intervention after being educated about potential risks and outcomes. Informed written consent to proceed with total knee arthroplasty was obtained. Preoperative medical clearance was obtained. Preoperative lab work, EKG, and chest x-ray were also obtained. The patient was admitted through same-day surgery on the morning of 07/10 and underwent successful left total knee arthroplasty. Her postsurgical course was uneventful. Postoperative imaging in the recovery room confirmed excellent placement of her joint prosthesis. She did well for the rest of the day. Pain was well managed. She was able to ambulate around her room with assistance using her walker. Appetite was good. DVT prophylaxis was begun using warfarin that evening. Recheck the next morning revealed that the patient was still doing very well. She participated with physical therapy and did excellent. She was full weightbearing. She ambulated over 100 feet. She expressed a desire to go to [facility] due to living alone. Application for admission was made. Her backup plan was to attend [facility] for assisted care. Due to delay on reply from her insurance, no disposition was made on 07/11. Her knee dressing was changed and her wound looked good. Pain was managed. Vital signs remained stable. Labs were within normal limits. She was assessed again on 07/12 and had a mild to moderate increase in her pain. She was still doing well, participating in physical therapy and ambulating in her room and in the hallway. Lab work remained stable. Her insurance denied coverage for [facility]. The patient's daughter requested a peer to peer appeal. I completed this on the afternoon of 07/12 and request for admission was again denied. The patient's daughter elected to file a family appeal, however due to the time of day, no reply was heard before end of business. Her vitals remained stable. On the morning of 07/13, she was working with physical therapy and was descending a set of stairs. She put her good foot down first and had a significant amount of pain in the left leg. She had a vagal response and required assistance to a chair. She reportedly had a syncopal event, lost control of her bladder, and vomited. She was taken back to her bed and reclined. Vitals remained adequate. She had no chest pain or shortness of breath. Hospitalist consultation was obtained and no concerning abnormalities were noted. EKG was stable without acute changes. There was no recurrence. Pain was managed with Tylenol, ice, and elevation. Her anticoagulation was switched from warfarin to Eliquis 2.5 mg twice daily. She was assessed that day by Dr. Scherer, and no abnormalities were noted. No disposition occurred due to closure of her insurance carrier over the weekend. On 07/14 she continued to do well. Pain increased, but remained tolerable and manageable. She continued to participate with PT and ambulate in her room and in the hallway with her walker. The rest of the day remained uneventful. On 07/15 the patient was assessed by me. No decision has been made by her insurance carrier regarding the family appeal. The patient stated she was tired of being in the hospital and wanted to go home. Her daughter was in agreement with her wishes. Arrangements were made for home health services. Her dressing did not require any change as there was no soiling. She was discharged home on Eliquis 2.5 mg twice daily. Follow-up in the office as scheduled for staple removal. Admission Exam (Per Admitting) Constitutional General: Well-developed, well-nourished, elderly female, in no acute distress. Sitting in bed. Alert and oriented. Conversive. Skin: Warm and dry with good turgor. No rashes. Healing surgical incision present on her right anterior knee. She has expected postoperative edema and ecchymosis. There is no active drainage. There is scant dried blood on her inner postsurgical dressings. Musculoskeletal: The patient has intact motor function of her hip, knee, and ankle. She has intact plantarflexion and dorsiflexion of the ankle as well as inversion and eversion. She has full terminal extension of the knee. Flexion to around 60 degrees limited by pain. She is able to set her quad and perform a straight leg raise. She has no discomfort with logrolling of the hip. Neurologic: Gross sensation is intact across the left leg by soft touch. Peripheral pulses are 2+. Discharge Data Consultations 07/13/23 10:39 Consult Hospitalist Stat Procedures Performed Operation Date: 07/10/23 08:50 Actual Procedures p Left Total Knee Arthroplasty(Left) - Mychal Scherer MD Hospital Course (1) Status post left knee replacement: Discharge to home today on 07/15. Home health services have been arranged through case management. Prescription for Eliquis has been sent to her pharmacy. She has been using Tylenol in the hospital and has not required narcotics. She may use Tylenol at home as well. Keep the dressings clean, dry, and intact. Follow-up in the office in 10 days as scheduled for staple removal. Call the office with any other concerns. Continue her BERNIE hose daily for the next 6 weeks. Discharge Instructions Written discharge instructions were provided to the patient and her daughter.
--- NOTE | 2023-07-16 06:14 | Electrocardiogram Report ---
Test Reason : Blood Pressure : / mmHG Vent. Rate : 074 BPM Atrial Rate : 074 BPM P-R Int : 164 ms QRS Dur : 090 ms QT Int : 426 ms P-R-T Axes : 014 039 045 degrees QTc Int : 472 ms Normal sinus rhythm Normal ECG When compared with ECG of 10-FEB-2023 00:07, T wave inversion no longer evident in Inferior leads Confirmed by Nba De Luna ([id number]) on 07/16/2023 6:14:16 AM Referred By: Mychal Scherer Confirmed By:Nba De Luna
== END 2023-07-15 15:05 | disposition home health service (06) | DRG 470 ==
LOC: 3E 07:01 → ASU 07:01